=== PATIENT | male | born 1950 | race Caucasian/White ===

== ENCOUNTER 2018-02-28 15:53 | Observation (INO) | payer BC, MEDICARE ==
[~2018-02-28] VITALS: Ht 172.7 cm; Wt 72.4 kg
[2018-02-28 15:53] VITALS: BP 169/93; PULSE 58; RESP 16; TEMP 98; O2SAT 99
[2018-02-28] MEDS ORDERED: SODIUM CHLOR 0.9% 1000 ML INJ 1,000 ML IV SCH (15:57)
[2018-02-28] MEDS ORDERED: SODIUM CHLORIDE 0.9% FLUSH 10 ML FLUSH IV FLUSH PRN ×3 (16:00→18:15)
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
[2018-02-28 16:23] LABS: BASOPHIL # 0.1 TH/MM3 (0-0.2); BASOPHIL % 0.3 % (0.0-2.0); EOSINOPHIL % 0.1 % (0.0-4.0); HEMATOCRIT 49.6 % (39.0-51.0); HEMOGLOBIN 17.2 GM/DL (13.0-17.0); LYMPHOCYTE # 1.9 TH/MM3 (1.0-4.8); MEAN CELL VOLUME 84.5 FL (80.0-100.0); MEAN CORPUSCULAR HEMOGLOBIN 29.4 PG (27.0-34.0); MEAN CORPUSCULAR HGB CONC 34.8 % (32.0-36.0); MONO % 7.1 % (0.0-8.0); MONOCYTE # 1.2 TH/MM3 (0-0.9); NEUT % 81.5 % (16.0-70.0); PLATELET COUNT 388 TH/MM3 (150-450); RED BLOOD COUNT 5.87 MIL/MM3 (4.50-5.90); WHITE BLOOD COUNT 17.1 TH/MM3 (4.0-11.0)
--- NOTE | 2018-02-28 16:30 | RADRPT ---
EXAM DATE/TIME: 02/28/2018 16:05 [facility] COMPARISON: No previous studies available for comparison. INDICATIONS : Short of breath. MEDICAL HISTORY : None. SURGICAL HISTORY : None. ENCOUNTER: Initial ACUITY: 1 day PAIN SCORE: Non-responsive. LOCATION: Bilateral chest FINDINGS: 2 AP views of the chest demonstrate a normal-sized cardiac silhouette. EKG lines overlie the patient. No pleural effusion, airspace consolidation, or pneumothorax is identified. The bones and soft tissu es demonstrate no acute finding. CONCLUSION: No acute cardiopulmonary abnormality is identified. George Wood MD on February 28, 2018 at 16:26 Board Certified Radiologist. This report was verified electronically.
[2018-02-28 16:39] LABS: INTERNATIONAL NORMALIZED RATIO 1.1 RATIO; PROTHROMBIN TIME - PATIENT 11.4 SEC (9.8-11.6)
[2018-02-28 16:45] LABS: ALBUMIN 4.2 GM/DL (3.4-5.0); ALT (GPT) 26 U/L (12-78); AST (GOT) 19 U/L (15-37); BICARBONATE 28.2 MEQ/L (21.0-32.0); BLOOD UREA NITROGEN 32 MG/DL (7-18); CALCIUM 9.5 MG/DL (8.5-10.1); CHLORIDE 100 MEQ/L (98-107); CREATININE 1.01 MG/DL (0.60-1.30); GLOMERULAR FILTRATION RATE 64 ML/MIN (>89); GLUCOSE,RANDOM 107 MG/DL (74-106); SODIUM (NA) 138 MEQ/L (136-145)
[2018-02-28 16:50] LABS: BANDS 2 % (0-6); LYMPHOCYTES 6 % (9-44); MONOCYTES 5 % (0-8); POLYS (SEG NEUTROPHILS) 87 % (16-70)
[2018-02-28 16:53] LABS: NEUTROPHIL # MANUAL DIFF 15.2 TH/MM3 (1.8-7.7)
[2018-02-28 16:55] LABS: ALKALINE PHOSPHATASE 104 U/L (45-117); TOTAL BILIRUBIN ADULT 0.7 MG/DL (0.2-1.0); TOTAL PROTEIN 8.3 GM/DL (6.4-8.2); TROPONIN I LESS THAN 0.02 NG/ML (0.02-0.05)
[2018-02-28 17:00] VITALS: BP 178/96; PULSE 65; RESP 16; O2SAT 99
[2018-02-28] MEDS ORDERED: IOHEXOL 350 MG/ML 10 ML VIAL (for RAD DIAG) IVCONTRAST ONE (17:38)
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
[2018-02-28] MEDS ORDERED: LORazepam 1 MG TAB PO PRN (18:15)
[2018-02-28] MEDS ORDERED: LORazepam 2 MG TAB PO PRN (18:15)
[2018-02-28] MEDS ORDERED: NALOXONE HCL 0.4 MG/ML AMP IV PUSH PRN (18:15)
[2018-02-28] MEDS ORDERED: FLUMAZENIL 0.5 MG/5 ML VIAL IV PUSH PRN (18:15)
[2018-02-28] MEDS ORDERED: LORazepam 2 MG/ML VIAL IV PUSH PRN ×4 (18:15)
[2018-02-28] MEDS ORDERED: THIAMINE HCL 100 MG TAB PO ONE (18:30)
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
[2018-02-28] MEDS ORDERED: LAMO200T PO (19:51)
[2018-02-28] MEDS ORDERED: PERP2TAB18 PO ×2 (19:51)
[2018-02-28] MEDS ORDERED: TAMS5CAP PO (19:51)
[2018-02-28] MEDS ORDERED: SYMB160A INH (19:51)
[2018-02-28] MEDS ORDERED: OXYC30TA PO (19:51)
[2018-02-28] MEDS ORDERED: TEMA30CA PO (19:51)
[2018-02-28] MEDS ORDERED: BUPR100T4 PO ×2 (19:51)
[2018-02-28] MEDS ORDERED: MAGN500T2 PO (19:51)
[2018-02-28] MEDS ORDERED: D 50CAP2 PO (19:51)
[2018-02-28] MEDS ORDERED: LEVO100T5 PO (19:51)
[2018-02-28] MEDS ORDERED: QUET1TAB9 PO ×2 (19:51)
[2018-02-28] MEDS ORDERED: CENTCHW4 CHEW (19:51)
[2018-02-28] MEDS ORDERED: BUSP30TA PO (19:51)
[2018-02-28] MEDS ORDERED: GADODIAMIDE PF 287 MG/ML 10 ML VIAL (for RAD MRI) IVCONTRAST ONE (20:22)
--- NOTE | 2018-02-28 20:42 | RADRPT ---
EXAM DATE/TIME: 02/28/2018 20:06 [place] COMPARISON: CT BRAIN W/O CONTRAST, February 28, 2018, 17:21. INDICATIONS : Encephalitis. Trauma one week ago. Mental status changes. CONTRAST: 16 cc Omniscan (gadodiamide) IV MEDICAL HISTORY : Bipolar. SURGICAL HISTORY : Hernia. ENCOUNTER: Initial ACUITY: 1 day PAIN SCORE: 0/10 LOCATION: Head. TECHNIQUE: Multiplanar, multisequence MRI of the brain was performed both prior to and following the administrat ion of paramagnetic contrast. FINDINGS: CEREBRUM: The ventricles are normal for age. No evidence of midline shift, mass lesion, hemorrhage or acute in farction. No extraaxial fluid collections are seen. The pituitary gland and suprasellar cistern are normal in configuration. WHITE MATTER: On the flair images there are several small scattered punctate areas of increased signal noted in the deep white matter. POSTERIOR FOSSA: The cerebellum and brainstem are intact. The 4th ventricle is midline. The cerebellopontine angle is unremarkable. The cerebellar tonsils are normal in position. DIFFUSION IMAGING: No focal areas of restricted diffusion are seen. No evidence of acute infarction. EXTRACRANIAL: The visualized portions of the orbits and paranasal sinuses are unremarkable. POST-CONTRAST: No abnormal areas of parenchymal or dural enhancement. No evidence of blood-brain barrier breakdown. CONCLUSION: 1. No acute hemorrhage, mass or infarction. 2. Mild atrophic change and mild chronic small vessel ischemic changes. Usman Stiles MD on February 28, 2018 at 20:37 Board Certified Radiologist. This report was verified electronically.
[2018-02-28] MEDS ORDERED: SODIUM CHLORIDE 0.9% FLUSH 10 ML FLUSH IV FLUSH SCH (21:00)
[2018-02-28] MEDS ORDERED: TAMSULOSIN HCL 0.4 MG CAP PO SCH (21:00)
[2018-02-28 21:29] VITALS: BP 172/105; PULSE 66; RESP 16; TEMP 97.5; O2SAT 97
[2018-02-28] MEDS: SODIUM CHLORIDE 0.9% FLUSH 10 ML FLUSH IV FLUSH SCH (21:46)
[2018-02-28] MEDS: SODIUM CHLOR 0.9% 1000 ML INJ 1,000 ML IV SCH (21:50)
[2018-02-28 22:58] VITALS: BP 164/78
[2018-03-01] VITALS: BP 174/96; PULSE 67; RESP 18; TEMP 97.9; O2SAT 93
[2018-03-01 04:00] VITALS: BP 171/90; PULSE 65; RESP 18; TEMP 98.1; O2SAT 95
[2018-03-01 05:37] LABS: BILIRUBIN, URINE NEG (NEG); BLOOD, URINE NEG (NEG); GLUCOSE,URINE NEG (NEG); KETONE, URINE 10 mg/dL (NEG); MUCUS URINE FEW /lpf (OCC); NITRITE,URINE NEG (NEG); PH, URINE 6.5 (5.0-8.5); TRANSITIONAL EPI CELLS, URINE <1 /hpf; URINE COLOR YELLOW (YELLW/STRAW); URINE LEUKOCYTE ESTERASE NEG (NEG)
[2018-03-01] MEDS: SODIUM CHLOR 0.9% 1000 ML INJ 1,000 ML IV SCH ×2 (05:54→12:30)
[2018-03-01] MEDS ORDERED: LEVOTHYROXINE SODIUM 100 MCG TAB PO SCH (06:00)
[2018-03-01 06:02] LABS: AUTOMATED NEUTROPHIL # 12.7 TH/MM3 (1.8-7.7); BASOPHIL % 0.2 % (0.0-2.0); EOSINOPHIL # 0.1 TH/MM3 (0-0.4); EOSINOPHIL % 0.3 % (0.0-4.0); LYMPH % 11.4 % (9.0-44.0); LYMPHOCYTE # 1.8 TH/MM3 (1.0-4.8); MEAN CELL VOLUME 85.4 FL (80.0-100.0); MEAN CORPUSCULAR HEMOGLOBIN 29.2 PG (27.0-34.0); MEAN CORPUSCULAR HGB CONC 34.2 % (32.0-36.0); MEAN PLATELET VOLUME 8.9 FL (7.0-11.0); MONO % 9.3 % (0.0-8.0); MONOCYTE # 1.5 TH/MM3 (0-0.9); NEUT % 78.8 % (16.0-70.0); PLATELET COUNT 337 TH/MM3 (150-450); RED BLOOD COUNT 5.15 MIL/MM3 (4.50-5.90); RED CELL DISTRIBUTION WIDTH 13.7 % (11.6-17.2); WHITE BLOOD COUNT 16.1 TH/MM3 (4.0-11.0)
[2018-03-01 06:24] LABS: BICARBONATE 26.2 MEQ/L (21.0-32.0); CALCIUM 8.4 MG/DL (8.5-10.1); CREATININE 0.58 MG/DL (0.60-1.30)
[2018-03-01 08:00] VITALS: BP 174/91; PULSE 64; RESP 20; TEMP 97.8; O2SAT 96
[2018-03-01] MEDS ORDERED: THIAMINE HCL 100 MG TAB PO SCH (09:00)
[2018-03-01] MEDS: SODIUM CHLORIDE 0.9% FLUSH 10 ML FLUSH IV FLUSH SCH (09:00)
[2018-03-01] MEDS ORDERED: lamoTRIgine 100 MG TAB PO SCH (09:00)
[2018-03-01] MEDS ORDERED: BUDESONIDE-FORMOTEROL 160/4.5 MCG INHALER INH SCH (09:00)
[2018-03-01] MEDS ORDERED: FOLIC ACID 1 MG TAB PO SCH (09:00)
[2018-03-01] MEDS: POTASSIUM CHLOR 20 MEQ PREMIX 100 ML IV SCH ×2 (10:45→12:32)
[2018-03-01 12:00] VITALS: BP 176/94; PULSE 74; RESP 20; TEMP 97.8; O2SAT 96
[2018-03-01] MEDS ORDERED: PANT40TA3 PO (13:52)
[2018-03-01] MEDS ORDERED: OXYC1CAP PO (13:52)
--- NOTE | 2018-03-01 13:56 | HHI.DCPOC ---
Discharge Care Plan Diagnosis: (1) Delirium (2) Encephalopathy (3) Altered mental status (4) HTN (hypertension) (5) Hypokalemia (6) Leukocytosis Goals to Promote Your Health * To prevent worsening of your condition and complications * To maintain your health at the optimal level Directions to Meet Your Goals Take your medications as prescribed Follow your dietary instruction Follow activity as directed Keep your appointments as scheduled Take your immunizations and boosters as scheduled If your symptoms worsen call your PCP, if no PCP go to Urgent Care Center or Emergency Room Smoking is Dangerous to Your Health. Avoid second hand smoke Call the 24-hour hour crisis hotline for domestic abuse at Usman Shafer DO Mar 01, 2018 13:56
[2018-03-01] MEDS ORDERED: CLON0.1T PO (13:59)
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
[2018-03-01 17:00] VITALS: BP 171/79; PULSE 66; RESP 17; TEMP 97.4; O2SAT 98
--- NOTE | 2018-03-01 19:34 | EKG ---
Date Performed: 02/28/2018 Time Performed: 17:47:47 PTAGE: 89 years EKG: Sinus rhythm NORMAL ECG NO PREVIOUS TRACING DOCTOR: Ajay Nguyen Interpretating Date/Time 03/01/2018 19:30:35
--- NOTE | 2018-03-02 07:30 | MG ---
cc: Timothy Wilson MD EEG RECORD NUMBER [id number] 5-7 Hz activity, 20-40 microvolts with low amplitude. There is delta activity occurring. Good EEG variability with activity. Single lead EKG showing sinus rhythm. No obvious lateralizing features. INTERPRETATION: Mild encephalopathy. Clinical correlation. MD SHARON Crooks/JUSTYNA , 07:06 AM , 07:29 AM
[2018-03-02] MEDS ORDERED: CHOLECALCIFEROL (VIT D3) 5000 UNIT CAP PO SCH (09:00)
[2018-03-02] MEDS ORDERED: BUPR150XL PO ×2 (15:49→16:03)
[2018-03-02] MEDS ORDERED: BUSP30TA PO (16:03)
[2018-03-02] MEDS ORDERED: LAMO200T PO (16:03)
[2018-03-02] MEDS ORDERED: TEMA30CA PO (16:03)
[2018-03-02] MEDS ORDERED: QUET400T PO (16:03)
[2018-03-02] MEDS ORDERED: PERP4TAB24 PO (16:03)
== END 2018-03-01 19:19 ==
LOC: EDBD → NEPE 15:53 → NEDA 18:09 → N07B 20:39
PROVIDERS: ADMIT Hospitalist; ATTEND Hospitalist
DX: G93.40 Encephalopathy, unspecified (principal); F31.12 Bipolar disorder, current episode manic without psychotic features, moderate; G89.29 Other chronic pain; E87.6 Hypokalemia; R10.9 Unspecified abdominal pain; D72.829 Elevated white blood cell count, unspecified; R06.02 Shortness of breath; R11.10 Vomiting, unspecified; R19.7 Diarrhea, unspecified; R11.2 Nausea with vomiting, unspecified; R15.9 Full incontinence of feces; R63.0 Anorexia; I10 Essential (primary) hypertension; M41.86 Other forms of scoliosis, lumbar region
CPT/HCPCS: 70450; 70553; 71045; 74177; 80048; 80053; 80307; 81001; 82140; 82550; 82607; 83605; 83690; 84443; 84484; 85007; 85025; 85027; 85610; 85730; 87040; 93005; 95819; 96361; 96365; 96366; 97162; 99285; A9579; G0378; J3480; J7030; Q9967

== ENCOUNTER 2018-03-01 16:30 | Inpatient (IN) | payer MEDICARE ==
[~2018-03-01] VITALS: Ht 170.2 cm; Wt 69.6 kg
[~2018-03-01 16:30] MED LIST: BUPR100T4 PO; BUSP30TA PO; CENTCHW4 CHEW; CLON0.1T PO; D 50CAP2 PO; LAMO200T PO; LEVO100T5 PO; MAGN500T2 PO; OXYC1CAP PO; OXYC30TA PO; PANT40TA3 PO; PERP2TAB18 PO; QUET1TAB9 PO; SYMB160A INH; TAMS5CAP PO; TEMA30CA PO
[2018-03-01 20:00] VITALS: BP 184/88; PULSE 67; RESP 18; TEMP 98; O2SAT 97
[2018-03-02 06:00] VITALS: BP 145/84; PULSE 68; RESP 18; TEMP 98.8; O2SAT 97
[2018-03-02 06:34] VITALS: BP 179/97
[2018-03-02] MEDS ORDERED: INFLUENZA VIRUS VACCINE (QUADRIVALENT) 0.5 ML SYR IM ONE (09:00)
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
[2018-03-02] MEDS ORDERED: LORazepam 1 MG TAB PO PRN (10:00)
[2018-03-02] MEDS ORDERED: LORazepam 2 MG/ML VIAL IM PRN ×2 (10:00)
[2018-03-02] MEDS ORDERED: LORazepam 0.5 MG TAB PO PRN (10:00)
[2018-03-02] MEDS ORDERED: ALUMINUM/MAGNESIUM/SIMETH 30 ML CUP PO PRN (10:00)
[2018-03-02] MEDS ORDERED: MAGNESIUM HYDROXIDE SUSP 30 ML CUP PO PRN (10:00)
[2018-03-02] MEDS ORDERED: ACETAMINOPHEN 325 MG TAB PO PRN (10:00)
[2018-03-02] MEDS: CHOLECALCIFEROL (VIT D3) 5000 UNIT CAP PO SCH (11:20)
[2018-03-02] MEDS: lamoTRIgine 100 MG TAB PO SCH (11:20)
[2018-03-02] MEDS: LEVOTHYROXINE SODIUM 100 MCG TAB PO SCH (11:20)
[2018-03-02] MEDS: cloNIDine HCL 0.1 MG TAB PO SCH ×2 (13:17→18:05)
[2018-03-02] MEDS ORDERED: BUPR150XL PO ×2 (15:49→16:03)
[2018-03-02] MEDS ORDERED: LAMO200T PO (16:03)
[2018-03-02] MEDS ORDERED: TEMA30CA PO (16:03)
[2018-03-02] MEDS ORDERED: QUET400T PO (16:03)
[2018-03-02] MEDS ORDERED: PERP4TAB24 PO (16:03)
[2018-03-02] MEDS ORDERED: BUSP30TA PO (16:03)
[2018-03-02 17:24] VITALS: BP 162/110; PULSE 80; RESP 20; TEMP 98.5; O2SAT 98
[2018-03-02] MEDS: TAMSULOSIN HCL 0.4 MG CAP PO SCH (19:38)
[2018-03-02] MEDS: REMOVE OLD NICODERM (NICOTINE) PATCH T-DERMAL SCH (21:00)
[2018-03-03] MEDS: cloNIDine HCL 0.1 MG TAB PO SCH ×4 (00:10→17:40)
[2018-03-03] MEDS: LEVOTHYROXINE SODIUM 100 MCG TAB PO SCH (06:00)
[2018-03-03 06:11] VITALS: BP 162/92; PULSE 67; RESP 18; TEMP 97.9; O2SAT 97
[2018-03-03 07:47] LABS: BICARBONATE 27.8 MEQ/L (21.0-32.0); BLOOD UREA NITROGEN 15 MG/DL (7-18); CALCIUM 8.9 MG/DL (8.5-10.1); CHLORIDE 102 MEQ/L (98-107); CREATININE 1.02 MG/DL (0.60-1.30); GLOMERULAR FILTRATION RATE 63 ML/MIN (>89); GLUCOSE,RANDOM 100 MG/DL (74-106); SODIUM (NA) 137 MEQ/L (136-145)
[2018-03-03 07:48] LABS: CHOLESTEROL 115 MG/DL (120-200)
[2018-03-03 07:50] LABS: CHOLESTEROL/ HDL RATIO 2.69 RATIO; HDL CHOLESTEROL 42.6 MG/DL (40.0-60.0); LDL CHOLESTEROL 64 MG/DL (0-99); TRIGLYCERIDES 43 MG/DL (42-150)
[2018-03-03] MEDS: lamoTRIgine 100 MG TAB PO SCH (08:58)
[2018-03-03] MEDS: CHOLECALCIFEROL (VIT D3) 5000 UNIT CAP PO SCH (08:58)
[2018-03-03] MEDS: BUDESONIDE-FORMOTEROL 160/4.5 MCG INHALER INH SCH (09:07)
[2018-03-03] MEDS: NICOTINE 21 MG/24 HR PATCH T-DERMAL SCH (09:07)
[2018-03-03 11:48] LABS: HEMOGLOBIN A1C 5.7 % (4.3-6.0)
--- NOTE | 2018-03-03 13:16 | HHI.PYPN ---
Subjective Remarks The patient was seen today for psychiatric reevaluation. I have discussed with the patient in detail his medication list. The patient has been in lamotrigine 300 mg, bupropion 450 mg, Trilafon 4 mg twice daily, record 400 mg twice daily, buspirone 30 mg twice daily, temazepam 30 mg at bedtime, currently for over 10 years. Now, the patient has not been taking this medication for 2 weeks now and there is no sign of psychiatric decompensation. I discussed with the patient and his , the convenience of most probably starting just the lamotrigine with Seroquel slowly monitoring symptoms of psychosis or katt. At this moment the patient reports good mood, he is logical, coherent and relevant. He denies depressive symptoms, denies suicidal and homicidal ideation , he denies visual and auditory hallucinations. He is compliant with his medications, no significant side effects. Mental Status Examination Appearance: Appropriate Consciousness: Alert Orientation: x4 Motor Activity: Normal gait Speech: Unremarkable Language: Adequate Fund of Knowledge: Adequate Attention and Concentration: Adequate Memory: Unremarkable Mood: Appropriate Affect: Appropriate Thought Process & Associations: Intact Thought Content: Appropriate Hallucination Type: None Delusion Type: None Suicidal Ideation: No Suicidal Plan: No Suicidal Intention: No Homicidal Ideation: No Homicidal Plan: No Homicidal Intention: No Insight: Adequate Judgment: Adequate Results Labs Test 03/03/18 06:36 Blood Urea Nitrogen 15 MG/DL Creatinine 1.02 MG/DL Random Glucose 100 MG/DL Calcium Level 8.9 MG/DL Sodium Level 137 MEQ/L Potassium Level 3.3 MEQ/L Chloride Level 102 MEQ/L Carbon Dioxide Level 27.8 MEQ/L Anion Gap 7 MEQ/L Estimat Glomerular Filtration Rate 63 ML/MIN Triglycerides Level 43 MG/DL Cholesterol Level 115 MG/DL LDL Cholesterol 64 MG/DL HDL Cholesterol 42.6 MG/DL Cholesterol/HDL Ratio 2.69 RATIO Vitals/IOs Vital Signs Date Time Temp Pulse Resp B/P (MAP) Pulse Ox O2 Delivery O2 Flow Rate FiO2 03/03/18 06:11 97.9 67 18 162/92 (115) 97 Intake and Output 03/03/18 03/03/18 03/04/18 08:00 16:00 00:00 Intake Total 720 ml 720 ml Balance 720 ml 720 ml Assessment & Plan Problem List: (1) Bipolar 1 disorder with moderate katt ICD Codes: F31.12 - Bipolar disorder, current episode manic without psychotic features, moderate Assessment & Plan: Continue lamotrigine 300 mg, start Seroquel 50 mg twice daily. health service worker intervention to start to coordinate a safe discharge. Assessment & Plan Estimated LOS: days Justification for Cont. Inpt. Patient has an elevated risk to decompensate at a lower level of care Isaiah Tipton MD Mar 03, 2018 13:16
[2018-03-03] MEDS: QUEtiapine FUMARATE 25 MG TAB PO SCH ×2 (13:44→21:04)
[2018-03-03 18:16] VITALS: BP 149/96; PULSE 76; RESP 17; TEMP 98.7; O2SAT 97
[2018-03-03] MEDS: REMOVE OLD NICODERM (NICOTINE) PATCH T-DERMAL SCH (21:00)
[2018-03-03] MEDS: TAMSULOSIN HCL 0.4 MG CAP PO SCH (21:04)
[2018-03-04 05:13] VITALS: BP 115/72; PULSE 88; RESP 16; TEMP 98.2; O2SAT 94
[2018-03-04] MEDS: cloNIDine HCL 0.1 MG TAB PO SCH ×6 (05:17→23:35)
[2018-03-04] MEDS: LEVOTHYROXINE SODIUM 100 MCG TAB PO SCH (05:17)
[2018-03-04] MEDS: NICOTINE 21 MG/24 HR PATCH T-DERMAL SCH (09:00)
[2018-03-04] MEDS: BUDESONIDE-FORMOTEROL 160/4.5 MCG INHALER INH SCH (09:00)
[2018-03-04] MEDS: lamoTRIgine 100 MG TAB PO SCH (10:20)
[2018-03-04] MEDS: QUEtiapine FUMARATE 25 MG TAB PO SCH ×2 (10:20→20:22)
[2018-03-04] MEDS: CHOLECALCIFEROL (VIT D3) 5000 UNIT CAP PO SCH (10:20)
[2018-03-04 12:47] VITALS: BP 99/57
--- NOTE | 2018-03-04 16:38 | HHI.PYPN ---
Subjective Remarks Reviewed electronic medical record discussed case with staff. Follow-up was performed in patient's room. Patient states that he has not been sleeping well but relates this to how uncomfortable the bed is. He reports that he has had a good appetite. He states that he has had no side effects from the medications and feels much better since being back on them. He advises that he has a plane ticket to fly back to [place] around 8 AM on Sunday and is asking about being discharged. Advised patient that if he continued to do well, Dr. Griffin would be seeing him tomorrow and discharge might be a possibility. Per his counselor, Oralia, who has spoken to the patient's there is a neighbor who is willing to pick patient up and take him to the airport. Patient would be able to stay at his own house in [facility] with a neighbor looking in on him who lives next door. This patient denies being suicidal, homicidal, having auditory or visual hallucinations at this time. His speech is clear, logical, and organized. There is no indication of internal stimuli nor thought blocking. I can elicit no delusional material at this time. His mood is good his affect is euthymic. He reports that he has established psychiatric care in [place]. Mental Status Examination Appearance: Appropriate Consciousness: Alert Orientation: x4 Motor Activity: Normal gait Speech: Unremarkable Language: Adequate Fund of Knowledge: Adequate Attention and Concentration: Adequate Memory: Unremarkable Mood: Appropriate Affect: Appropriate Thought Process & Associations: Intact Thought Content: Appropriate Hallucination Type: None Delusion Type: None Suicidal Ideation: No Suicidal Plan: No Suicidal Intention: No Homicidal Ideation: No Homicidal Plan: No Homicidal Intention: No Insight: Adequate Judgment: Adequate Results Vitals/IOs Vital Signs Date Time Temp Pulse Resp B/P (MAP) Pulse Ox O2 Delivery O2 Flow Rate FiO2 03/04/18 12:47 99/57 (71) 03/04/18 05:13 98.2 88 16 94 Intake and Output 03/04/18 03/04/18 03/05/18 08:00 16:00 00:00 Intake Total 240 ml 840 ml Balance 240 ml 840 ml Assessment & Plan Problem List: (1) Bipolar 1 disorder with moderate katt ICD Codes: F31.12 - Bipolar disorder, current episode manic without psychotic features, moderate Assessment & Plan Estimated LOS: Patient seems to be doing well upon exam today. He is anxious for discharge. Admits that he had not taken his meds for 2 weeks prior to being admitted. States that he feels much better on his medications. Hopeful for discharge tomorrow. Days Justification for Cont. Inpt. Moving this patient to a lower level of care would likely result in a decompensation. However, I am hopeful for discharge tomorrow pending continued psychiatric stability. Christen Parker Mar 04, 2018 16:38
[2018-03-04 18:00] VITALS: BP 145/82; PULSE 86; RESP 17; TEMP 97.3; O2SAT 97
[2018-03-04] MEDS: REMOVE OLD NICODERM (NICOTINE) PATCH T-DERMAL SCH (20:22)
[2018-03-04] MEDS: TAMSULOSIN HCL 0.4 MG CAP PO SCH (20:22)
[2018-03-04 23:31] VITALS: BP 109/56; PULSE 73
[2018-03-05 06:00] VITALS: BP 152/91; PULSE 94; RESP 15; TEMP 97.9; O2SAT 92
[2018-03-05] MEDS: LEVOTHYROXINE SODIUM 100 MCG TAB PO SCH (06:06)
[2018-03-05] MEDS: cloNIDine HCL 0.1 MG TAB PO SCH ×2 (06:06→11:58)
[2018-03-05] MEDS: CHOLECALCIFEROL (VIT D3) 5000 UNIT CAP PO SCH (08:54)
[2018-03-05] MEDS: lamoTRIgine 100 MG TAB PO SCH ×2 (08:54→10:36)
[2018-03-05] MEDS: QUEtiapine FUMARATE 25 MG TAB PO SCH (08:54)
[2018-03-05] MEDS: BUDESONIDE-FORMOTEROL 160/4.5 MCG INHALER INH SCH (08:54)
[2018-03-05] MEDS: NICOTINE 21 MG/24 HR PATCH T-DERMAL SCH (08:56)
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
[2018-03-05 11:59] VITALS: BP 131/78
== END 2018-03-05 16:30 | disposition home or self-care (01) | DRG 885 ==
LOC: H4EA 19:30 → EDBD 19:30
PROVIDERS: ADMIT Psychiatry & Neurology Psychiatry; ATTEND Psychiatry & Neurology Psychiatry
DX: F31.12 Bipolar disorder, current episode manic without psychotic features, moderate (principal); Z91.14 Patient's other noncompliance with medication regimen; G89.29 Other chronic pain; Z79.891 Long term (current) use of opiate analgesic
CPT/HCPCS: 80048; 80061; 80307; 81001; 82550; 82607; 83036; 83690; 85025; 96361; 96365; 96366; G0378; J3480; J7030